=== PATIENT | female | born 1945 | race Hispanic/Latino ===

== ENCOUNTER → 2016-06-29 | Outpatient (CLI) | payer OTHER ==
[~2016-06-29] MED LIST: ATOR10TA PO; CLOP75TA28 PO; GEMF600T3 PO; GLYB5TAB6 PO; LISI2.5T PO; OMEG-160 PO; PENT400T2 PO; REGADENOSON 0.4 MG/5 ML SYR (LEXISCAN) IV ONE
[2016-06-29] MEDS: CATHETER FLUSH 10 ML SYR IV PRN ×2 (12:34→13:28)
[2016-06-29 13:12] VITALS: BP 141/66
--- NOTE | 2016-06-30 13:04 | STRESS TEST ---
DATE OF SERVICE: 06/29/2016 STRESS TEST REPORT Baseline heart rate is 64, baseline blood pressure 145/64. Baseline EKG is sinus rhythm with nonspecific T-wave abnormality. SUMMARY: The patient was injected with 10.3 mCi of technetium-99 Myoview and the resting images were obtained. Then, the patient received 0.4 mg of Lexiscan followed by 30.6 mCi of technetium 99 Myoview. Throughout the test, the patient had subtle EKG changes with widening of the QRS, appeared to be right bundle branch block with ST elevation in V1 only. At the end of the test, EKG returned to baseline. The resting and stress images were reviewed and compared in the short axis, horizontal long axis and vertical long axis views. Review of the images showed breast attenuation with decreased uptake at the mid to apical anterior wall. SSS is 2, SDS 2. No significant ischemia was noted due to the breast attenuation. TID value 1.14. On the gated images, the left ventricle appeared to be normal in size with normal contractility. Calculated ejection fraction 68%. CONCLUSION: 1. The patient tolerated Lexiscan well. 2. EKG changes with Lexiscan injection resolved during recovery. 3. Breast attenuation with mild ischemia involving the mid to apical anterior wall with subtle reversibility. 4. Normal left ventricular size with normal contractility. Calculated ejection fraction 68%. Job ID: [id number] DocumentID: [id number] Dictated Date: 06/30/2016 08:25:45 Net Sorter Date: 06/30/2016 11:43:14 Dictated By: MINH DOWELL MD
== END ==
LOC: CARD 12:06
PROVIDERS: ATTEND Internal Medicine Cardiovascular Disease
DX: E11.9 Type 2 diabetes mellitus without complications (principal); L97.509 Non-pressure chronic ulcer of other part of unspecified foot with unspecified severity; I10 Essential (primary) hypertension; M79.605 Pain in left leg; M79.604 Pain in right leg; E78.2 Mixed hyperlipidemia; I73.9 Peripheral vascular disease, unspecified
CPT/HCPCS: 78452; 93017

== ENCOUNTER 2016-06-30 07:02 | Day surgery (SDC) | payer OTHER ==
[2016-06-30] VITALS (14 sets, daily range): BP systolic 112–186; BP diastolic 50–82
[~2016-06-30] VITALS: Ht 154.9 cm; Wt 55.8 kg
[2016-06-30] MEDS ORDERED: HEParin (CATH LAB) 2,000 ML IV ONE (07:11)
[2016-06-30] MEDS ORDERED: LIDOCAINE 1% INJ 20 ML (XYLOCAINE) VIAL ONE ×2 (07:11→09:50)
[2016-06-30] MEDS ORDERED: NS IV 1000 ML 1,000 ML ONE (07:11)
[2016-06-30] MEDS ORDERED: NS IV 1000 ML 1,000 ML IV SCH (07:30)
[2016-06-30 07:42] LABS: MEAN PLATELET VOLUME 10.3 FL (7.4-10.4); RED BLOOD COUNT 4.56 10^6/uL (4.35-5.85); RED CELL DISTRIBUTION WIDTH 13.1 % (10.0-14.5); WHITE BLOOD COUNT 7.6 10^3/uL (4.3-11.0)
[2016-06-30 07:45] LABS: BILIRUBIN,URINE NEGATIVE (NEGATIVE); KETONES,URINE 1+ (NEGATIVE); LEUKOCYTE ESTERASE ,URINE 3+ (NEGATIVE); NITRITE,URINE NEGATIVE (NEGATIVE); PH,URINE 5 (5-9); PROTEIN,URINE 1+ (NEGATIVE); UROBILINOGEN,URINE NORMAL (NORMAL)
[2016-06-30 07:52] LABS: INR 0.9 (0.8-1.4); PROTHROMBIN TIME PATIENT 12.3 SEC (12.2-14.7)
[2016-06-30] MEDS ORDERED: GLYB5TAB6 PO (07:55)
[2016-06-30] MEDS ORDERED: LISI2.5T PO (07:55)
[2016-06-30] MEDS ORDERED: GEMF600T3 PO (07:55)
[2016-06-30 07:58] LABS: TRIPLE PHOSPHATE CRYSTAL,UR MODERATE /LPF
[2016-06-30 08:03] LABS: ALBUMIN 4.6 G/DL (3.2-4.5); BILIRUBIN,TOTAL 0.4 MG/DL (0.1-1.0); CALCIUM 9.9 MG/DL (8.5-10.1); CREATININE SERUM 1.14 MG/DL (0.60-1.30); POTASSIUM 3.9 MMOL/L (3.6-5.0); TOTAL PROTEIN 7.7 G/DL (6.4-8.2)
--- NOTE | 2016-06-30 08:11 | Diagnostic Imaging Report ---
Portable upright radiograph of the chest. INDICATION: Hypertension. Coronary artery disease. FINDINGS: The heart size is moderately enlarged. There is mild pulmonary vascular congestion. Minimal opacity in the right lung base is likely atelectasis. No effusion or pneumothorax. The mediastinum and lucian appear unremarkable. Sternotomy wires are seen. IMPRESSION: Moderate cardiomegaly with mild vascular congestion. Minimal right basilar opacity is favored to be atelectasis. Correlate clinically. Dictated by: Dictated on workstation # [id number]
[2016-06-30] MEDS ORDERED: fentaNYL INJECTION 100 MCG/2 ML AMP ONE ×3 (08:19→14:27)
[2016-06-30] MEDS ORDERED: MIDAZOLAM 5 MG/5 ML (VERSED) VIAL ONE ×2 (08:19→09:54)
--- NOTE | 2016-06-30 08:33 | Cardiac Procedure Note-CS/ASA ---
Pre-Procedure Note Pre-Op Procedure Note H&P Reviewed The H&P was reviewed, patient examined and no changes noted. Date H&P Reviewed: June 30, 2016 Time H&P Reviewed: 08:33 Conscious Sedation Pre-Proced Time Reviewed: 08:33 ASA Class: 3 Airway Mallampati Classification: ([place] appropriate class) I. II. III, IV Lungs Heart ASA score ASA 1: a normal healthy patient ASA 2: a patient with a mild systemic disease (mid diabetes, controlled hypertension, obesity x ASA 3: a patient with a severe systemic disease that limits activity (angina , COPD, prior Myocardial infarction) ASA 4: a patient with an incapacitating disease that is a constant threat to life (CHF, renal failure) ASA 5: a moribund patient not expected to survive 24 hrs. (ruptured aneurysm) ASA 6: a declared brain patient whose organs are being harvested. For emergent operations, add the letter E after the classification Grade 3 Sedation Plan: Analgesia, Amnesia, Plan communicated to team members, Discussed options with patient/fam, Discussed risks with patient/fam Note The patient is an appropriate candidate to undergo the planned procedure, sedation, and anesthesia. The patient immediately re-assessed prior to indication. MINH DOWELL MD June 30, 2016 08:33
[2016-06-30] MEDS ORDERED: NITROGLYCERIN DRIP 25 MG/D5W 250 ML IV ONE (08:54)
[2016-06-30] MEDS ORDERED: HEParin 1000 UNIT/ML (10ML VIAL) FOR BOLUS ONE (08:54)
[2016-06-30] MEDS ORDERED: diphenhydrAMINE 50 MG/ML INJ (BENADRYL) ONE (09:55)
[2016-06-30] MEDS ORDERED: CLOPIDOGREL 75 MG (PLAVIX) TABLET PO NR (11:45)
[2016-06-30] MEDS ORDERED: PATIENT MAY USE OWN MEDS, ALL PO SCH (11:45)
[2016-06-30] MEDS: NS IV 1000 ML 1,000 ML IV SCH ×2 (11:55→21:31)
[2016-06-30] MEDS ORDERED: ATROPINE INJECTION 1 MG/10 ML SYR (ABBOTT) ONE (14:27)
--- NOTE | 2016-06-30 15:02 | CARDIAC CATHETERIZATION ---
DATE OF SERVICE: 06/30/2016 PERIPHERAL ANGIOGRAM WITH ANGIOPLASTY BRIEF HISTORY: The patient is a 71-year-old female with history of coronary artery disease, CABG x2, had nonhealing wound on her right leg, severely abnormal EUGENE bilaterally. She was scheduled for peripheral angiogram, possible angioplasty. PROCEDURE NOTE: After explaining the procedure to the patient, all pros and cons were explained, all questions were answered. The patient signed the consent and then she was placed in the cardiac catheterization laboratory. Left groin was prepped in a sterile fashion. Runoff of the left lower extremity was done through the sheath. Then, the pigtail catheter was advanced to the abdominal aorta and abdominal aortogram was done. Then, I crossed over using long Storq wire and advanced a straight catheter to the right common femoral artery. Runoff of the right lower extremity was done. Then, I exchanged the sheath into a long 45 cm 6-[place] sheath. I advanced it to the common femoral artery. The patient has total occlusion of the SFA. I tried to cross the lesion with multiple wires without success, advanced the straight catheter then cross mini catheter to the mid SFA. There was dissection midway, but no flow jeopardized. After multiple attempts, I was unable to access it. I used ultrasound to access the right dorsalis pedis artery, put a 4-[place] sheath. Angiogram showed good flow. I advanced a wire up to the popliteal artery. Then, mini cross catheter and a straight catheter and I used a balloon 2.0 x 100, advanced it to the popliteal artery. I used it as a backup support. I was able to advance the wire, but it was in the false lumen. After multiple attempts, angiogram showed failure to intubate the artery. I did multiple injections through the sheath showing persistent adequate flow through the leg. I proceeded with removal of the catheter and pedal sheath and groin sheath was exchanged back into short 6-[place] sheath and it was sutured in place. CONCLUSIONS: 1. Atherosclerotic disease in the abdominal aorta and bifurcation. 2. Severe peripheral arterial disease at the left lower extremity involving total occlusion of the SFA, reconstruction by collateral at the popliteal artery occlusion of the arteries below the knee. 3. Right lower extremity has total occlusion of the proximal SFA, reconstructed popliteal artery fairly small artery. Then, the trifurcation was evaluated. Only one arterial runoff, which is the posterior tibial artery. Multiple attempts for intervention through the sheath and retrograde through sheath was placed in the dorsalis pedis artery were unsuccessful. No complication noted. DISCUSSION AND RECOMMENDATION: After removal of the sheath, the patient was started on Plavix. I will monitor her closely overnight. Arrange for evaluation for a possible fem-pop bypass surgery. FINAL DIAGNOSES: 1. Nonhealing foot ulcer. 2. Peripheral arterial disease. 3. Coronary artery disease, history of coronary artery bypass graft x2. 4. Hypertension. 5. Hyperlipidemia. Job ID: [id number] DocumentID: [id number] Dictated Date: 06/30/2016 11:50:29 Direct Casting Operator Date: 06/30/2016 14:17:24 Dictated By: MINH DOWELL MD
[2016-06-30] MEDS ORDERED: NITROGLYCERIN 2% OINT 1 GM UNIT DOSE PACKET TOP NR (15:45)
[2016-06-30] MEDS: glyBURIDE 5 MG (MICRONASE) TAB PO SCH (17:24)
[2016-07-01] VITALS: BP 146/68
[2016-07-01 03:53] LABS: MEAN PLATELET VOLUME 10.3 FL (7.4-10.4); RED BLOOD COUNT 4.04 10^6/uL (4.35-5.85); RED CELL DISTRIBUTION WIDTH 13.1 % (10.0-14.5); WHITE BLOOD COUNT 6.2 10^3/uL (4.3-11.0)
[2016-07-01 04:00] VITALS: BP 152/60
[2016-07-01 04:10] LABS: ANION GAP 10 MMOL/L (5-14); BLOOD UREA NITROGEN 13 MG/DL (7-18); BUN/CREATININE RATIO 15; CALCIUM 9.3 MG/DL (8.5-10.1); CARBON DIOXIDE 22 MMOL/L (21-32); CHLORIDE 107 MMOL/L (98-107); CREATININE SERUM 0.86 MG/DL (0.60-1.30); GFR ESTIMATED > 60; GLUCOSE 219 MG/DL (70-105); POTASSIUM 4.2 MMOL/L (3.6-5.0); SODIUM 139 MMOL/L (135-145)
[2016-07-01] MEDS: glyBURIDE 5 MG (MICRONASE) TAB PO SCH (06:39)
[2016-07-01] MEDS ORDERED: GEMFIBROZIL 600 MG (LOPID) TAB PO SCH (07:00)
[2016-07-01] MEDS: NS IV 1000 ML 1,000 ML IV SCH (07:31)
--- NOTE | 2016-07-01 08:02 | Cardiology Progress Note ---
Subjective Subjective/Events-last exam Patient is in bed, feeling better, no pain, groin and foot healing well Review of Systems General: No Chills, No Night Sweats, No Fatigue, No Malaise, No Appetite, No Other HEENT: No Head Aches, No Visual Changes, No Eye Pain, No Ear Pain, No Dysphasia , No Sinus Congestion, No Post Nasal Drip, No Sore Throat, No Other Pulmonary: No Dyspnea, No Cough, No Pleuritic Chest Pain, No Other Cardiovascular: No: Chest Pain, Edema, Lt Headedness, Orthopnea, Other, Palpitations, Paroxysmal Noc. Dyspnea Objective-Cardiology Exam Last Set of Vital Signs Vital Signs 07/01/16 04:00 Temp 98.6 Pulse 87 Resp 23 B/P (MAP) 152/60 Pulse Ox 97 Capillary Refill : Less Than 3 Seconds I&O Intake and Output 07/01/16 00:00 Intake Total 1045 ml Balance 1045 ml Intake Oral 50 ml IV Total 995 ml # Voids 4 General: Alert, Oriented X3, Cooperative HEENT: Atraumatic, PERRLA Neck: Supple, No JVD, No Thyromegaly Lungs: Clear to Auscultation, Normal Air Movement Heart: Regular Rate, Normal S1, Normal S2, No Murmurs Abdomen: Normal Bowel Sounds, Soft, No Tenderness, No Hepatosplenomegaly, No Masses Extremities: No Edema, No Tenderness/Swelling, Other (diminished pulse) Skin: No Rashes, No Breakdown, No Significant Lesion Neuro: Normal Gait, Normal Speech, Strength at 5/5 X4 Ext, Normal Tone, Sensation Intact Psych/Mental Status: Mental Status NL, Mood NL Results Lab Laboratory Tests 07/01/16 03:30 A/P-Cardiology Admission Diagnosis peripheral arterial disease Coronary artery disease Hypertension Hyperlipidemia Assessment/Plan severe peripheral arterial disease bilaterally, unable to intervene on the lower extremity, no complications, I we'll forward to Dr. David Andersen for evaluation. Conservative management for now Hypertension, continue current medication, add calcium channel blockers Hyperlipidemia, tight lipid monitoring. I will start the patient on [place] and Plavix for now Allergy to aspirin Coronary artery disease history of CABG. Borderline stress test MINH DOWELL MD July 01, 2016 08:02
[2016-07-01] MEDS ORDERED: PENT400T2 PO (08:06)
[2016-07-01] MEDS ORDERED: ATOR10TA PO (08:06)
[2016-07-01] MEDS ORDERED: CLOP75TA28 PO (08:06)
[2016-07-01] MEDS ORDERED: OMEG-160 PO (08:06)
--- NOTE | 2016-07-01 08:07 | Discharge Inst-Post CATH ---
Discharge Inst-CATH Post Cardiac Cath D/C Inst Follow Up/Plan Appointment with Dr Kiko Andersen next week Appointment with Dr Tai's office in 2 weeks CARDIAC CATH DISCHARGE INSTRUCTIONS *Hold Metformin for 48 hours post heart cath. ACTIVITY * Go Home directly and rest. * Limit activity of the leg (or wrist if it was used) for 7 days including aerobics, swimming, jogging, bicycling, etc. * Restrict stair-climbing for 7 days if possible, if not, climb up with your non -cath leg, then bring together on the same step. * Avoid lifting, pushing, pulling or excessive movement of the affected extremity for 7 days. * Customary sexual activity may be resumed after 2 days-use caution not to use a position that strains or causes pain to the affected extremity. * No driving for 24 hours. * NO SMOKING. * Avoid straining for bowel movements for 7 days. * Gentle walking on level ground is allowed. * Returning to work will depend on the type of procedure and the results. Your doctor will discuss this with you. CALL YOUR DOCTOR FOR ANY OF THE FOLLOWING: *If bleeding from the puncture site occurs- Apply gentle pressure to site with clean cloth and call your doctor or EMS. * If a knot or lump forms under the skin, increases in size, or causes pain. * If bruising appears to be worsening or moving further down your leg instead of disappearing. * Temperature above 101 F. CARE OF YOUR GROIN INCISION; * Bruising or purple discoloration of the skin near the puncture site is common. * You may shower only, no bathtub bathing for 5 days. Be careful to avoid slipping as your leg may feel stiff. * If a closure device was used on your femoral artery, please see the attached guide regarding care of the device and your leg. * REMOVE the dressing from your groin the next day after your procedure in the shower. CARE OF YOUR WRIST INCISION; * Bruising or purple discoloration of the skin near the puncture site is common. * You may shower. * DO NOT submerge wrist. * Remove dressing in 24 hours. MINH TAI MD July 01, 2016 08:07
[2016-07-01] MEDS ORDERED: CLOPIDOGREL 75 MG (PLAVIX) TABLET PO SCH (09:00)
[2016-07-01] MEDS ORDERED: LISINOPRIL 2.5 MG TAB PO SCH (09:00)
[2016-07-01] MEDS ORDERED: NON-FORMULARY MEDICATION 1 EA EA (Lisinopril 2.5 MG) PO SCH (09:00)
[2016-07-01 09:27] VITALS: BP 137/60
== END 2016-07-01 11:25 | disposition home or self-care (01) ==
LOC: CATH 07:02 → EDSTATUS 09:00 → EDUNIT# 09:00 → ICU 11:50 → CATH 11:50 → UNDOFXCLIACCOM 15:00 → UNDOFXCLIRRACCOM 15:00 → UNDOFXCLISVC 15:00 → ICU 15:00 → CATH 07-01 11:25 → ICU 07-01 11:25
PROVIDERS: ATTEND Internal Medicine Cardiovascular Disease
DX: I70.213 Atherosclerosis of native arteries of extremities with intermittent claudication, bilateral legs (principal); I70.92 Chronic total occlusion of artery of the extremities; L97.519 Non-pressure chronic ulcer of other part of right foot with unspecified severity; I70.0 Atherosclerosis of aorta; I25.10 Atherosclerotic heart disease of native coronary artery without angina pectoris; E11.621 Type 2 diabetes mellitus with foot ulcer; I10 Essential (primary) hypertension; E78.5 Hyperlipidemia, unspecified; Z87.891 Personal history of nicotine dependence; Z95.1 Presence of aortocoronary bypass graft; Z79.899 Other long term (current) drug therapy; Z79.84 Long term (current) use of oral hypoglycemic drugs
CPT/HCPCS: 36247; 36415; 71010; 75625; 75716; 75774; 80048; 80053; 80061; 81000; 82962; 85027; 85347; 85610; 85730; 87077; 87081; 87088; 87186; 93005